=== PATIENT | female | born 1980 | race American Indian/Alaskan Native ===

== ENCOUNTER 2021-04-26 16:56 | Emergency (ER) | payer BC ==
[2021-04-26 18:09] VITALS: BP 142/91
--- NOTE | 2021-04-26 18:21 | Emergency Department Report ---
ED ENT HPI - General Chief complaint: Dental/Oral Stated complaint: SWOLLEN GUMS Time Seen by Provider: 04/26/21 18:11 Source: patient Mode of arrival: Ambulatory Limitations: No Limitations - History of Present Illness Initial comments: Patient is a 40-year-old female presents emergency room complaints of right- sided gum swelling for approximately 2 to 3 days. Patient states that she has had some dental pain in this area for some time now. She states that she does have a cap over the molars. She states it has been several years since she has seen a dentist. She states that she recently obtained dental insurance and is planning to see a dentist. She denies any fever, nausea, vomiting, diarrhea, difficulty swallowing, difficulty breathing. Patient denies any past medical history. No allergies to medications. She states her last menstrual cycle was approximately 2 weeks ago. - Related Data Previous Rx's Medication Instructions Recorded Last Taken Type Chlorhexidine Mouthwash [Peridex] 15 ml MM BID #1 bottle 04/26/21 Unknown Rx Naproxen 500 mg PO BID PRN #14 tab 04/26/21 Unknown Rx Penicillin V Potassium 500 mg PO QID 7 Days #28 tab 04/26/21 Unknown Rx Allergies Allergy/AdvReac Type Severity Reaction Status Date / Time No Known Allergies Allergy Unverified 04/26/21 17:57 ED Dental HPI - General Chief complaint: Dental/Oral Stated complaint: SWOLLEN GUMS Time Seen by Provider: 04/26/21 18:11 Source: patient Mode of arrival: Ambulatory Limitations: No Limitations - Related Data Previous Rx's Medication Instructions Recorded Last Taken Type Chlorhexidine Mouthwash [Peridex] 15 ml MM BID #1 bottle 04/26/21 Unknown Rx Naproxen 500 mg PO BID PRN #14 tab 04/26/21 Unknown Rx Penicillin V Potassium 500 mg PO QID 7 Days #28 tab 04/26/21 Unknown Rx Allergies Allergy/AdvReac Type Severity Reaction Status Date / Time No Known Allergies Allergy Unverified 04/26/21 17:57 ED Review of Systems ROS: Stated complaint: SWOLLEN GUMS Other details as noted in HPI Comment: All other systems reviewed and negative ED Past Medical Hx - Past Medical History Previous Medical History?: Yes Additional medical history: x 4 - Surgical History Past Surgical History?: Yes Additional Surgical History: x 4 - Medications Home Medications: Home Medications Medication Instructions Recorded Confirmed Last Taken Type Chlorhexidine Mouthwash [Peridex] 15 ml MM BID #1 bottle 04/26/21 Unknown Rx Naproxen 500 mg PO BID PRN #14 tab 04/26/21 Unknown Rx Penicillin V Potassium 500 mg PO QID 7 Days #28 tab 04/26/21 Unknown Rx ED Physical Exam - General Limitations: No Limitations General appearance: alert, in no apparent distress - Head Head exam: Present: atraumatic, normocephalic - Eye Eye exam: Present: normal appearance - ENT ENT exam: Present: mucous membranes moist, other (right lower gum edema, ttp to the right lower molar, no facial edema, uvula is midline, no uvular edema or deviation, no trismus, no tongue elevation, no muffled voice, no submandibular edema ) - Respiratory Respiratory exam: Absent: respiratory distress, accessory muscle use - Neurological Exam Neurological exam: Present: alert, oriented X3 - Psychiatric Psychiatric exam: Present: normal affect, normal mood - Skin Skin exam: Present: warm, dry, intact ED Course Vital Signs 04/26/21 18:08 Temperature 98.4 F Pulse Rate 85 Respiratory 20 Rate Blood Pressure 142/91 [Right] O2 Sat by Pulse 99 Oximetry ED Medical Decision Making - Medical Decision Making Patient is a 40-year-old female presents emergency room complaints of right- sided gum swelling for approximately 2 to 3 days. Patient states that she has had some dental pain in this area for some time now. She states that she does have a cap over the molars. She states it has been several years since she has seen a dentist. She states that she recently obtained dental insurance and is planning to see a dentist. She denies any fever, nausea, vomiting, diarrhea, difficulty swallowing, difficulty breathing. Patient denies any past medical history. No allergies to medications. She states her last menstrual cycle was approximately 2 weeks ago. Vitals are stable. On exam:right lower gum edema, ttp to the right lower molar, no facial edema, uvula is midline, no uvular edema or deviation, no trismus, no tongue elevation, no muffled voice, no submandibular edema. Symptoms and examination appear consistent with dental abscess. No signs of facial abscess or August's at this time. Advised patient Please use medication as prescribed. Please follow-up with a dentist. Return to emergency room for any new or worsening symptoms. Critical care attestation.: If time is entered above; I have spent that time in minutes in the direct care of this critically ill patient, excluding procedure time. ED Disposition Clinical Impression: Dental caries, Dental abscess Disposition: HOME / SELF CARE / HOMELESS Is pt being admited?: No Does the pt Need Aspirin: No Condition: Stable Instructions: Dental Abscess Additional Instructions: Please use medication as prescribed. Please follow-up with a dentist. Return to emergency room for any new or worsening symptoms. Prescriptions: Naproxen 500 mg PO BID PRN #14 tab PRN Reason: pain Penicillin V Potassium 500 mg PO QID 7 Days #28 tab Chlorhexidine Mouthwash [Peridex] 15 ml MM BID #1 bottle Referrals: a, dentist [Other] - 3-5 Days Time of Disposition: 18:20 Print Language: YAKUT
== END 2021-04-26 18:43 | disposition home or self-care (01) ==
LOC: ED 16:56
DX: K02.9 Dental caries, unspecified (principal); K04.7 Periapical abscess without sinus; Z79.899 Other long term (current) drug therapy; Z98.890 Other specified postprocedural states
CPT/HCPCS: 99282